=== PATIENT | female | born 1940 | race Caucasian/White ===

== ENCOUNTER 2018-05-31 11:56 | Day surgery (SDC) | payer MEDICARE ==
[2018-05-30 12:05] LABS: BASOPHILS % (AUTO) 0.3 % (0-1); EOSINOPHILS # (AUTO) 0.2 X10'3 (0-0.9); EOSINOPHILS % (AUTO) 2.8 % (0-6); HEMATOCRIT 44.7 % (35.0-45.0); HEMOGLOBIN 15.1 g/dl (12.0-16.0); LYMPHOCYTES # (AUTO) 1.1 X10'3 (1.1-4.8); LYMPHOCYTES % (AUTO) 19.4 % (21-51); MEAN CORPUSCULAR HEMOGLOBIN 30.7 PG (27.0-31.0); MEAN CORPUSCULAR HGB CONC 33.7 % (33.0-36.5); MEAN CORPUSCULAR VOLUME 91.1 FL (78-98); MEAN PLATELET VOLUME 7.9 FL (7.4-10.4); MONOCYTES # (AUTO) 0.5 X10'3 (0-0.9); NEUTROPHILS # (AUTO) 4.1 X10'3 (1.8-7.7); NEUTROPHILS % (AUTO) 69.5 % (42-75); PLATELET COUNT 253 X10'3 (140-440); RED CELL DISTRIBUTION WIDTH 12.8 % (11.5-14.5); WHITE BLOOD COUNT 5.9 X10'3 (4.5-11.0)
[2018-05-30 12:19] LABS: ALBUMIN 3.3 G/DL (3.4-5.0); ANION GAP 7 (8-16); BLOOD UREA NITROGEN 11 MG/DL (7-18); BUN/CREATININE RATIO 15.5 (6.6-38.0); CALCIUM 8.9 MG/DL (8.5-10.1); CHLORIDE 105 MMOL/L (99-107); CREATININE 0.71 MG/DL (0.40-0.90); GLUCOSE 99 MG/DL (70-104); POTASSIUM 4.1 MMOL/L (3.5-5.1); SODIUM 141 MMOL/L (135-145); TOTAL CARBON DIOXIDE 29.3 MMOL/L (24-32); eGFR 80 ML/MIN
[2018-05-30 12:20] LABS: PARTIAL THROMBOPLASTIN TIME 28 SECONDS (22-32); PROTHROMBIN TIME 10.3 SECONDS (9.0-12.0)
[2018-05-31] VITALS (12 sets, daily range): BP systolic 124–149; BP diastolic 52–78
[~2018-05-31] VITALS: Ht 165.1 cm; Wt 92.8 kg
[2018-05-31] MEDS ORDERED: ROSU20TA PO (12:22)
[2018-05-31] MEDS ORDERED: ASPI-10 PO (12:22)
[2018-05-31] MEDS ORDERED: FLEC100T2 PO (12:22)
[2018-05-31] MEDS ORDERED: LEVO125T PO (12:22)
[2018-05-31] MEDS ORDERED: normal saline 1000ml 1,000 ML IV SCH (12:25)
[2018-05-31] MEDS ORDERED: LORazepam 0.5 MG tablet PO PRN (12:25)
[2018-05-31] MEDS ORDERED: diphenhydrAMINE 25mg capsule PO PRN (12:25)
[2018-05-31] MEDS ORDERED: midazolam 2 mg/2 ml injection ONE (13:36)
[2018-05-31] MEDS ORDERED: heparin 1,000unit/ml 10ml vial 10 ML ONE (13:36)
[2018-05-31] MEDS ORDERED: fentaNYL/PF 50MCG/1 ML 2ML syringe ONE (13:36)
[2018-05-31] MEDS ORDERED: nitroGLYCERIN-Tridil 50MG/D5W 250 ML IV ONE (13:36)
[2018-05-31] MEDS ORDERED: LIDOcaine 1% 30ml preserv. free vial ONE (13:37)
[2018-05-31] MEDS ORDERED: iohexol 350MG/ML 100ml bottle IV ONE (13:37)
[2018-05-31] MEDS ORDERED: iohexol 350 MG/ML 50ML vial IV ONE (13:37)
[2018-05-31 14:41] LABS: ISTAT Hct MIX 37 %PCV (35-48); ISTAT O2 SATURATION MIX VENOUS 64 % (60-80); ISTAT SOURCE MIX
[2018-05-31 14:41] LABS: ISTAT HGB ART 12.6 g/dl (12.0-16.0); ISTAT Hct ART 37 %PCV (35-48); ISTAT O2 SATURATION ARTERIAL 86 % (95-98); ISTAT SOURCE ART
== END 2018-05-31 19:10 | disposition home or self-care (01) ==
LOC: SSTAY O 11:56
PROVIDERS: ATTEND Internal Medicine Cardiovascular Disease
DX: I25.10 Atherosclerotic heart disease of native coronary artery without angina pectoris (principal); E78.5 Hyperlipidemia, unspecified; E03.9 Hypothyroidism, unspecified; G47.33 Obstructive sleep apnea (adult) (pediatric); I49.5 Sick sinus syndrome; J44.9 Chronic obstructive pulmonary disease, unspecified; I48.0 Paroxysmal atrial fibrillation; I45.19 Other right bundle-branch block; M19.90 Unspecified osteoarthritis, unspecified site; E11.9 Type 2 diabetes mellitus without complications; Z72.89 Other problems related to lifestyle; Z88.0 Allergy status to penicillin; Z88.2 Allergy status to sulfonamides; Z95.0 Presence of cardiac pacemaker; Z79.82 Long term (current) use of aspirin; Z87.891 Personal history of nicotine dependence; Z98.890 Other specified postprocedural states; Z79.899 Other long term (current) drug therapy
CPT/HCPCS: 36415; 80048; 82803; 85014; 85025; 85610; 85730; 93005; 93460; 99152; 99153; A6257; C1760; C1769; C1894; J1644; J2250; J3010; J3490; J7030; Q0163; Q9967; A4620

== ENCOUNTER 2020-07-14 08:13 | Day surgery (SDC) | payer MEDICARE, BC ==
[2020-07-08 11:47] LABS: CLARITY,URINE CLEAR (Clear); COLOR,URINE YELLOW (Yellow); GLUCOSE, URINE NEGATIVE (Neg); KETONES,URINE NEGATIVE (Neg); LEUKOCYTE ESTERASE ,URINE TRACE (Neg); NITRITES, URINE NEGATIVE (Neg); OCCULT BLOOD,URINE NEGATIVE (Neg); PH,URINE 7.5 (4.8-8.0); PROTEIN,URINE NEGATIVE (Neg); UROBILINOGEN,URINE 0.2 E.U/dL (0.2-1.0)
[2020-07-08 11:48] LABS: BASOPHILS % (AUTO) 0.4 % (0-1); EOSINOPHILS # (AUTO) 0.1 X10'3 (0-0.9); EOSINOPHILS % (AUTO) 2.4 % (0-6); LYMPHOCYTES # (AUTO) 1.2 X10'3 (1.1-4.8); LYMPHOCYTES % (AUTO) 23.2 % (21-51); MEAN CORPUSCULAR HEMOGLOBIN 31.7 PG (27.0-31.0); MEAN CORPUSCULAR HGB CONC 34.3 g/dL (33.0-36.5); MEAN CORPUSCULAR VOLUME 92.5 FL (78-98); MONOCYTES # (AUTO) 0.5 X10'3 (0-0.9); MONOCYTES % (AUTO) 9.6 % (2-12); NEUTROPHILS # (AUTO) 3.3 X10'3 (1.8-7.7); NEUTROPHILS % (AUTO) 64.4 % (42-75); PRE OP HEMATOCRIT 42.3 % (35.0-45.0); PRE OP HEMOGLOBIN 14.5 g/dL (12.0-16.0); PRE OP PLATELET COUNT 242 X10'3 (140-440); RED BLOOD COUNT 4.57 X10'6 (4.20-5.60)
[2020-07-08 11:53] LABS: UA COLLECTION TYPE CLN CATCH MIDSTREAM
[2020-07-08 11:59] LABS: WBC,URINE 0-4 /HPF (0-4)
[2020-07-08 12:00] LABS: BACTERIA,URINE NONE SEEN /HPF (Neg); RBC,URINE 0-2 /HPF (0-2); SQUAMOUS EPITHELIAL CELL,UR FEW /LPF (FEW)
[2020-07-08 12:01] LABS: PRE OP INR 1.1 INR; PRE OP PROTIME 10.9 SECONDS (9.0-12.0)
[2020-07-08 12:24] LABS: ALBUMIN 3.4 G/DL (3.4-5.0); ALBUMIN/GLOBULIN RATIO 0.9 (1.1-1.5); ALKALINE PHOSPHATASE 75 IU/L (46-116); BLOOD UREA NITROGEN 11 MG/DL (7-18); BUN/CREATININE RATIO 15.7 (6.6-38.0); CALCIUM 9.2 MG/DL (8.5-10.1); CHLORIDE 108 MMOL/L (99-107); PRE OP ALT 24 U/L (30-65); PRE OP ANION GAP 8 (8-16); PRE OP AST 15 U/L (10-37); PRE OP BILIRUB, TOTAL 0.7 MG/DL (0.0-1.0); PRE OP GLUCOSE 79 MG/DL (70-104); PRE OP POTASSIUM 4.3 MMOL/L (3.4-5.1); PRE OP SODIUM 146 MMOL/L (135-145); TOTAL CARBON DIOXIDE 29.7 MMOL/L (24-32); TOTAL PROTEIN 7.2 G/DL (6.4-8.2); eGFR 81 ML/MIN
[~2020-07-14] VITALS: Ht 165.1 cm; Wt 93.4 kg
[2020-07-14] VITALS (8 sets, daily range): BP systolic 112–134; BP diastolic 54–72
[~2020-07-14 08:13] MED LIST: ALBU8.5H8 IH; APIX5TAB3 PO; BUDE10.2 INH; BUPIVAcaine/PF 2.5 mg/ml (0.25%) 30ml vial ONE; CALC-1215 PO; DILT30TA34 PO; FLEC100T2 PO; FURO-149 PO; GENTAMICIN IV ONE; LACT1CAP75 PO; LEVO125T PO; MULT-1085 PO; NORMAL SALINE IV ONE; OMEG-15 PO; POTA10TA36 PO; ROSU20TA2 PO; clindamycin-Cleocin 900mg/D5W 50 ML IV ONE; famotidine 20mg tablet PO ONE; ringers solution, lacted 1,000 ML IV SCH
[2020-07-14] MEDS ORDERED: INDOCYANINE GREEN 25 MG/10 ML VIAL IV ONE (09:00)
[2020-07-14] MEDS ORDERED: morphine 4 MG/ML inj SYRINge IV PRN (09:55)
[2020-07-14] MEDS ORDERED: labetalol 20mg/4ml (5mg/ml) syringe IV PRN (09:55)
[2020-07-14] MEDS ORDERED: morphine 2 MG/ML inj. syringe IV PRN (09:55)
[2020-07-14] MEDS ORDERED: dexamethasone sod phosphate 10mg/ml inj ONE (09:55)
[2020-07-14] MEDS ORDERED: neostigmine methylsulfate 1 MG/ML 10ml vial ONE (09:55)
[2020-07-14] MEDS ORDERED: sevoflurane 250ml liquid IH ONE (09:55)
[2020-07-14] MEDS ORDERED: ringers solution, lacted 1,000 ML IV SCH (09:55)
[2020-07-14] MEDS ORDERED: fentaNYL/PF 50MCG/1 ML 2ML syringe IV PRN (09:55)
[2020-07-14] MEDS ORDERED: hydrALAZINE 20mg/ml inj. IV PRN (09:55)
[2020-07-14] MEDS ORDERED: ondansetron/PF 4mg/2ml inj IV PRN (09:55)
[2020-07-14] MEDS ORDERED: rocuronium 10mg/ml inj IV ONE ×2 (09:55→10:10)
[2020-07-14] MEDS ORDERED: propofol inj 20 ML IV ONE (10:09)
[2020-07-14] MEDS ORDERED: LIDOcaine 2% (20mg/ml) 5ml vial ONE (10:10)
[2020-07-14] MEDS ORDERED: glycopyrrolate 0.2mg/ml inj ONE (10:11)
[2020-07-14] MEDS ORDERED: ondansetron/PF 4mg/2ml inj ONE (10:11)
[2020-07-14] MEDS ORDERED: fentaNYL/PF 50MCG/1 ML 2ML syringe ONE ×2 (10:12→11:06)
[2020-07-14] MEDS ORDERED: midazolam 2 mg/2 ml injection ONE (10:12)
--- NOTE | 2020-07-14 12:25 | NUR ---
Received from OR via BED , accompanied by Anesthesiologist DR GOMEZ and report given by Anesthesiolgist. PATIENT WAKING UP, DENIES PAIN, V/S WNL, NEUROVASCULAR CHECKS INTACT, 20G PIV RUE, SCD ON, BANDAIDS TO LAP SIGHTS OF ABDOMEN CDI.
[2020-07-14] MEDS ORDERED: HYDROcodone/acetaminophen 10/325mg tab PO ONE (12:30)
[2020-07-14] MEDS: fentaNYL/PF 50MCG/1 ML 2ML syringe IV PRN ×2 (12:40→12:57)
--- NOTE | 2020-07-14 13:25 | NUR ---
PATIENT A&OX4, DENIES PAIN, V/S WNL, NEUROVASCULAR CHECKS INTACT, 20G PIV RUE D/C, SCD OFF, BANDAIDS TO LAP SIGHTS OF ABDOMEN CDI.. I HAVE REVIEWED D/C INSTRUCTIONS WITH PATIENT AND FAMILY HAVE VERBALIZED UNDERSTANDING.PATIENT WAS D/C HOME WITH ALL BELONGINGS AND FAMILY GAVE TRANSPORT HOME.
== END 2020-07-14 13:25 | disposition home or self-care (01) ==
LOC: PAS 08:13
PROVIDERS: ATTEND Surgery
DX: K80.10 Calculus of gallbladder with chronic cholecystitis without obstruction (principal); K42.9 Umbilical hernia without obstruction or gangrene; J44.9 Chronic obstructive pulmonary disease, unspecified; M19.90 Unspecified osteoarthritis, unspecified site; I10 Essential (primary) hypertension; G47.33 Obstructive sleep apnea (adult) (pediatric); E03.9 Hypothyroidism, unspecified; Z79.899 Other long term (current) drug therapy; Z20.828 Contact with and (suspected) exposure to other viral communicable diseases; Z79.01 Long term (current) use of anticoagulants; Z88.0 Allergy status to penicillin; Z98.41 Cataract extraction status, right eye; Z98.42 Cataract extraction status, left eye; Z95.0 Presence of cardiac pacemaker; Z98.890 Other specified postprocedural states; Z87.891 Personal history of nicotine dependence; Z82.49 Family history of ischemic heart disease and other diseases of the circulatory system
CPT/HCPCS: 36415; 47562; 49585; 80053; 81001; 82948; 84443; 85025; 85610; 85730; 87088; 87635; 93005; J1100; J1580; J2001; J2250; J2405; J2704; J2710; J3010; J3490; J7120; A4215; A4618; A7000

== ENCOUNTER → 2021-10-19 | Day surgery (SDC) | payer MEDICARE, BC ==
[2021-10-14 13:36] LABS: CLARITY,URINE CLEAR (Clear); GLUCOSE, URINE NEGATIVE (Neg); KETONES,URINE NEGATIVE (Neg); LEUKOCYTE ESTERASE ,URINE NEGATIVE (Neg); NITRITES, URINE NEGATIVE (Neg); OCCULT BLOOD,URINE NEGATIVE (Neg); PH,URINE 6.5 (4.8-8.0); PROTEIN,URINE NEGATIVE (Neg); UROBILINOGEN,URINE 0.2 E.U/dL (0.2-1.0)
[2021-10-14 13:43] LABS: COLOR,URINE STRAW (Yellow); UA COLLECTION TYPE CLN CATCH MIDSTREAM
[2021-10-14 13:46] LABS: BASOPHILS % (AUTO) 0.2 % (0-1); EOSINOPHILS % (AUTO) 0.1 % (0-6); LYMPHOCYTES # (AUTO) 0.7 X10'3 (1.1-4.8); LYMPHOCYTES % (AUTO) 15.7 % (21-51); MEAN CORPUSCULAR VOLUME 91.1 FL (78-98); MEAN PLATELET VOLUME 7.4 FL (7.4-10.4); MONOCYTES # (AUTO) 0.8 X10'3 (0-0.9); MONOCYTES % (AUTO) 17.2 % (2-12); NEUTROPHILS % (AUTO) 66.8 % (42-75); PRE OP HEMATOCRIT 44.9 % (35.0-45.0); PRE OP HEMOGLOBIN 15.3 g/dL (12.0-16.0); PRE OP PLATELET COUNT 181 X10'3 (140-440); RED BLOOD COUNT 4.93 X10'6 (4.20-5.60); RED CELL DISTRIBUTION WIDTH 13.4 % (11.5-14.5)
[2021-10-14 13:50] LABS: APTT 35 SECONDS (22-32)
[2021-10-14 13:53] LABS: ALBUMIN 3.2 G/DL (3.4-5.0); ALBUMIN/GLOBULIN RATIO 0.9 (1.1-1.5); ALKALINE PHOSPHATASE 94 IU/L (46-116); BLOOD UREA NITROGEN 7 MG/DL (7-18); BUN/CREATININE RATIO 9.9 (6.6-38.0); CALCIUM 8.3 MG/DL (8.5-10.1); CHLORIDE 101 MMOL/L (99-107); CREATININE 0.71 MG/DL (0.40-0.90); PRE OP ALT 40 U/L (30-65); PRE OP ANION GAP 10 (8-16); PRE OP AST 31 U/L (10-37); PRE OP BILIRUB, TOTAL 0.6 MG/DL (0.0-1.0); PRE OP GLUCOSE 80 MG/DL (70-104); PRE OP POTASSIUM 3.7 MMOL/L (3.4-5.1); PRE OP SODIUM 138 MMOL/L (135-145); TOTAL CARBON DIOXIDE 27.3 MMOL/L (24-32); TOTAL PROTEIN 6.6 G/DL (6.4-8.2); eGFR 79 ML/MIN
[~2021-10-19] VITALS: Ht 165.1 cm; Wt 85.3 kg
[~2021-10-19] MED LIST changes: +ALBU8.5H17 IH; -ALBU8.5H8 IH; +AZEL137S4 BOTHNARES; +BUDE10.7 INH; -BUPIVAcaine/PF 2.5 mg/ml (0.25%) 30ml vial ONE; +CHOL20002 PO; +DILT120C19 PO; -DILT30TA34 PO; +FLUT16SP2 BOTHNARES; -GENTAMICIN IV ONE; -NORMAL SALINE IV ONE; +POTA-205 PO; -POTA10TA36 PO; +ZINC50TA67 PO; +albuterol 2.5 MG/3 ML nebule NEB ONE
--- NOTE | 2021-10-19 06:54 | NUR ---
PTS COVID TEST CAME BACK POSITIVE, PT AND SURGEON INFORMED, PT CANCELED UNTIL A LATER DATE. PT GIVEN A COPY OF HER RESULTS. DRESSED AND DISCHARGED. HER SON WAS COMING TO PICK HER UP.
--- NOTE | 2021-10-19 07:03 | NUR ---
PT. INSTRUCTED TO ISOLATE PER CDC RECOMMENDATIONS, FOLLOW UP WITH PCP REGARDING ELIQUIS AND ANY COVID RELATED S/S. PT. TO CONTACT SURGEON TO RESCHEDULE.
== END | disposition home or self-care (01) ==
LOC: PAS 05:56
PROVIDERS: ATTEND Surgery
DX: K43.2 Incisional hernia without obstruction or gangrene (principal); Z53.8 Procedure and treatment not carried out for other reasons; U07.1 COVID-19; E03.9 Hypothyroidism, unspecified; J44.9 Chronic obstructive pulmonary disease, unspecified; Z20.822 Contact with and (suspected) exposure to COVID-19; Z88.0 Allergy status to penicillin; Z88.2 Allergy status to sulfonamides; Z79.01 Long term (current) use of anticoagulants; Z95.0 Presence of cardiac pacemaker; Z79.899 Other long term (current) drug therapy
CPT/HCPCS: 36415; 71046; 80053; 81003; 85025; 85610; 85730; J7120; U0003; U0005

== ENCOUNTER 2021-10-26 08:20 | Day surgery (SDC) | payer MEDICARE, BC ==
[~2021-10-26] VITALS: Ht 165.1 cm; Wt 84.3 kg
[2021-10-26] VITALS (7 sets, daily range): BP systolic 107–119; BP diastolic 52–68
[~2021-10-26 08:20] MED LIST changes: -albuterol 2.5 MG/3 ML nebule NEB ONE
[2021-10-26] MEDS ORDERED: ceFAZolin 1000mg inj ONE (12:14)
[2021-10-26] MEDS ORDERED: bacitracin 15gm ointment TP ONE (12:14)
[2021-10-26] MEDS ORDERED: BUPIVAcaine/PF 2.5mg/ml (0.25%) 10ml vial ONE (12:15)
[2021-10-26] MEDS ORDERED: labetalol 20mg/4ml (5mg/ml) syringe IV PRN (13:05)
[2021-10-26] MEDS ORDERED: meperidine/PF 25mg/ml syringe IV PRN ×3 (13:05)
[2021-10-26] MEDS ORDERED: hydrALAZINE 20mg/ml inj. IV PRN (13:05)
[2021-10-26] MEDS ORDERED: ondansetron/PF 4mg/2ml inj IV PRN (13:05)
[2021-10-26] MEDS ORDERED: morphine 4 MG/ML inj SYRINge IV PRN (13:05)
[2021-10-26] MEDS ORDERED: proCHLORperazine 10 MG/2 ml inj IV PRN (13:05)
[2021-10-26] MEDS ORDERED: morphine 2 MG/ML inj. syringe IV PRN (13:05)
[2021-10-26] MEDS ORDERED: ringers solution, lacted 1,000 ML IV SCH (13:05)
[2021-10-26] MEDS ORDERED: acetaminophen 1,000mg/100ml IV 100 ML IV PRN (13:05)
[2021-10-26] MEDS ORDERED: fentaNYL/PF 50MCG/1 ML 2ML syringe ONE (13:08)
[2021-10-26] MEDS ORDERED: midazolam 1 mg/ML 2ml injection ONE (13:09)
[2021-10-26] MEDS ORDERED: ondansetron/PF 4mg/2ml inj ONE (13:24)
[2021-10-26] MEDS ORDERED: dexamethasone sod phosphate 4mg/ml inj. ONE (13:24)
[2021-10-26] MEDS ORDERED: LIDOcaine 2% (20mg/ml) 5ml vial ONE (13:24)
[2021-10-26] MEDS ORDERED: propofol inj 20 ML IV ONE (13:24)
--- NOTE | 2021-10-26 13:55 | NUR ---
Received from OR via BED, accompanied by Anesthesiologist and report given by Anesthesiologist. PATIENT WAKING UP, NO S/S OF PAIN, V/S WNL, SCD ON, 20G TO LUE, ABDOMEN LAP SITE CLEAN W/ NO S/S OF COMPLICATIONS
[2021-10-26] MEDS ORDERED: oxyCODONE/APAP 5-325mg tablet PO ONE (14:10)
--- NOTE | 2021-10-26 14:45 | NUR ---
PATIENT A&OX4, DENIES PAIN, V/S WNL, SCD ON, 20G TO LUE D/C, ABDOMEN LAP SITE CLEAN W/ NO S/S OF COMPLICATIONS .. I HAVE REVIEWED D/C INSTRUCTIONS WITH PATIENT and they have verbalized understanding patient d/c home with all belongings and family gave transport home.
== END 2021-10-26 14:45 | disposition home or self-care (01) ==
LOC: PAS 08:20
PROVIDERS: ATTEND Surgery
DX: K43.9 Ventral hernia without obstruction or gangrene (principal); G47.33 Obstructive sleep apnea (adult) (pediatric); J44.9 Chronic obstructive pulmonary disease, unspecified; E03.9 Hypothyroidism, unspecified; I48.91 Unspecified atrial fibrillation; Z88.0 Allergy status to penicillin; Z88.2 Allergy status to sulfonamides; Z79.01 Long term (current) use of anticoagulants; Z79.899 Other long term (current) drug therapy; Z87.891 Personal history of nicotine dependence; Z98.41 Cataract extraction status, right eye; Z98.42 Cataract extraction status, left eye; Z98.890 Other specified postprocedural states; Z95.0 Presence of cardiac pacemaker
CPT/HCPCS: 49560; 82948; 93005; J0690; J1100; J2250; J2405; J2704; J3010; J3490; J7030; J7120; Z7506; Z7512; A4215; A4618; A7000

== ENCOUNTER 2022-02-01 05:13 | Day surgery (SDC) | payer MEDICARE, BC ==
[2022-01-25 14:56] LABS: BASOPHILS % (AUTO) 0.2 % (0-1); EOSINOPHILS # (AUTO) 0.1 X10'3 (0-0.9); EOSINOPHILS % (AUTO) 0.7 % (0-6); LYMPHOCYTES # (AUTO) 1.3 X10'3 (1.1-4.8); LYMPHOCYTES % (AUTO) 17.4 % (21-51); MEAN CORPUSCULAR HEMOGLOBIN 30.2 PG (27.0-31.0); MEAN CORPUSCULAR HGB CONC 33.6 g/dL (33.0-36.5); MEAN PLATELET VOLUME 7.4 FL (7.4-10.4); MONOCYTES # (AUTO) 0.5 X10'3 (0-0.9); MONOCYTES % (AUTO) 7.3 % (2-12); NEUTROPHILS # (AUTO) 5.6 X10'3 (1.8-7.7); NEUTROPHILS % (AUTO) 74.4 % (42-75); PRE OP HEMATOCRIT 45.4 % (35.0-45.0); PRE OP HEMOGLOBIN 15.2 g/dL (12.0-16.0); PRE OP PLATELET COUNT 289 X10'3 (140-440); RED BLOOD COUNT 5.04 X10'6 (4.20-5.60); RED CELL DISTRIBUTION WIDTH 13.8 % (11.5-14.5)
[2022-01-25 15:03] LABS: CLARITY,URINE CLEAR (Clear); COLOR,URINE YELLOW (Yellow); GLUCOSE, URINE NEGATIVE (Neg); KETONES,URINE NEGATIVE (Neg); LEUKOCYTE ESTERASE ,URINE NEGATIVE (Neg); NITRITES, URINE NEGATIVE (Neg); OCCULT BLOOD,URINE NEGATIVE (Neg); PROTEIN,URINE NEGATIVE (Neg); UROBILINOGEN,URINE 0.2 E.U/dL (0.2-1.0)
[2022-01-25 15:04] LABS: UA COLLECTION TYPE NON-SPECIFIED
[2022-01-25 15:13] LABS: ALBUMIN 3.6 G/DL (3.4-5.0); ALBUMIN/GLOBULIN RATIO 0.9 (1.1-1.5); ALKALINE PHOSPHATASE 92 IU/L (46-116); BLOOD UREA NITROGEN 11 MG/DL (7-18); BUN/CREATININE RATIO 15.5 (6.6-38.0); CALCIUM 9.4 MG/DL (8.5-10.1); CHLORIDE 105 MMOL/L (99-107); CREATININE 0.71 MG/DL (0.40-0.90); PRE OP ALT 32 U/L (30-65); PRE OP ANION GAP 5 (8-16); PRE OP AST 22 U/L (10-37); PRE OP BILIRUB, TOTAL 0.7 MG/DL (0.0-1.0); PRE OP GLUCOSE 90 MG/DL (70-104); PRE OP POTASSIUM 3.4 MMOL/L (3.4-5.1); PRE OP SODIUM 139 MMOL/L (135-145); TOTAL PROTEIN 7.6 G/DL (6.4-8.2); eGFR 79 ML/MIN
[2022-02-01] VITALS (9 sets, daily range): BP systolic 108–152; BP diastolic 62–72
[~2022-02-01] VITALS: Ht 165.1 cm; Wt 84.0 kg
[~2022-02-01 05:13] MED LIST changes: -BUDE10.2 INH; +LEVO100T PO; -LEVO125T PO; -clindamycin-Cleocin 900mg/D5W 50 ML IV ONE; -famotidine 20mg tablet PO ONE
[2022-02-01] MEDS ORDERED: clindamycin-Cleocin 900mg/D5W 50 ML IV ONE (05:30)
[2022-02-01] MEDS ORDERED: famotidine 20mg tablet PO ONE (05:30)
[2022-02-01] MEDS ORDERED: BUPIVAcaine 0.5% inj/PF 30 ML ONE ×2 (06:41→08:27)
[2022-02-01] MEDS ORDERED: glycopyrrolate 0.2mg/ml inj ONE (07:10)
[2022-02-01] MEDS ORDERED: sevoflurane 250ml liquid IH ONE (07:10)
[2022-02-01] MEDS ORDERED: ondansetron/PF 4mg/2ml inj IV PRN (07:15)
[2022-02-01] MEDS ORDERED: morphine 4 MG/ML inj SYRINge IV PRN (07:15)
[2022-02-01] MEDS ORDERED: labetalol 20mg/4ml (5mg/ml) syringe IV PRN (07:15)
[2022-02-01] MEDS ORDERED: ringers solution, lacted 1,000 ML IV SCH (07:15)
[2022-02-01] MEDS ORDERED: fentaNYL/PF 50MCG/1 ML 2ML syringe IV PRN ×2 (07:15)
[2022-02-01] MEDS ORDERED: hydrALAZINE 20mg/ml inj. IV PRN (07:15)
[2022-02-01] MEDS ORDERED: morphine 2 MG/ML inj. syringe IV PRN (07:15)
[2022-02-01] MEDS ORDERED: fentaNYL/PF 50MCG/1 ML 2ML syringe ONE (07:20)
[2022-02-01] MEDS ORDERED: midazolam 1 mg/ML 2ml injection ONE (07:20)
[2022-02-01] MEDS ORDERED: dexamethasone sod phosphate 4mg/ml inj. ONE (07:28)
[2022-02-01] MEDS ORDERED: propofol inj 20 ML IV ONE (07:28)
[2022-02-01] MEDS ORDERED: LIDOcaine 2% (20mg/ml) 5ml vial ONE (07:28)
[2022-02-01] MEDS ORDERED: neostigmine methylsulfate 1 MG/ML 10ml vial ONE (07:28)
[2022-02-01] MEDS ORDERED: ondansetron/PF 4mg/2ml inj ONE (07:28)
[2022-02-01] MEDS ORDERED: rocuronium 10mg/ml inj IV ONE (07:28)
[2022-02-01] MEDS ORDERED: BUPIVAcaine 0.5% inj/PF 30 ml vial IJ ONE (07:59)
[2022-02-01] MEDS ORDERED: BUPIVACAINE liposomal/PF 13.3 MG/ML vial IM ONE (08:27)
--- NOTE | 2022-02-01 08:59 | NUR ---
Received from OR via STRETCHER, accompanied by Anesthesiologist ARIANA and report given by Anesthesiolgist. PT IS ALERT AND ORIENTED, TALKING, DENIES PAIN AT THIS TIME, STATES MILE LOWER ABDOMINAL DISCOMFORT INCISIONS CHECKED, CLOSED WITH DERMABOND, NO SIGNS OF BLEEDING SEEN
--- NOTE | 2022-02-01 10:09 | NUR ---
PT DISCHARGED IN STABLE CONDITION VITAL SIGNS STABLE, PTS DAUGHTER IN LAW PICKED UP PT. PT TAKEN TO CAR VIA WHEELCHAIR, PT STATES PAIN DECREASED TO A ONE AFTER SHE GOT UP TO WENT TO THE BATHROOM. IV D/SHANEL CATHETER INTACT. SMALL PRESSURE DRESSING APPLIED, NO BLEEDING. DISCHARGE INSTRUCTIONS GIVEN TO PATIENT AND DAUGHTER INLAW. BOTH VERBALIZED UNDERSTANDING, INSTRUCTIONS GIVEN TO EQUIPMENT ENGINEERING TECHNICIAN PA[facility] AT [facility] [address].
== END 2022-02-01 10:09 | disposition home or self-care (01) ==
LOC: PAS 05:13
PROVIDERS: ATTEND Surgery
DX: K43.2 Incisional hernia without obstruction or gangrene (principal); J44.9 Chronic obstructive pulmonary disease, unspecified; I48.91 Unspecified atrial fibrillation; G47.30 Sleep apnea, unspecified; M19.90 Unspecified osteoarthritis, unspecified site; Z20.822 Contact with and (suspected) exposure to COVID-19; Z79.899 Other long term (current) drug therapy; Z79.01 Long term (current) use of anticoagulants; Z90.49 Acquired absence of other specified parts of digestive tract; Z88.0 Allergy status to penicillin; Z88.2 Allergy status to sulfonamides; Z95.0 Presence of cardiac pacemaker; Z98.41 Cataract extraction status, right eye; Z98.42 Cataract extraction status, left eye; Z98.890 Other specified postprocedural states; Z87.891 Personal history of nicotine dependence; Z72.89 Other problems related to lifestyle
CPT/HCPCS: 36415; 49654; 64488; 80053; 81003; 82948; 85025; C1781; C9290; J1100; J2250; J2405; J2704; J2710; J3010; J3490; J7030; J7120; S0020; U0003; U0005; Z7506; Z7508; Z7512; A4618; A7000

== ENCOUNTER 2022-09-29 12:22 | Outpatient (CLI) | payer MEDICARE, BC ==
[~2022-09-29 12:22] MED LIST changes: -ROSU20TA2 PO; -ringers solution, lacted 1,000 ML IV SCH
== END 2022-09-29 23:59 | disposition home or self-care (01) ==
LOC: RAD 12:22
PROVIDERS: ATTEND Internal Medicine Cardiovascular Disease
DX: I08.1 Rheumatic disorders of both mitral and tricuspid valves (principal); Z95.0 Presence of cardiac pacemaker
CPT/HCPCS: 93306

== ENCOUNTER 2023-05-29 06:05 | Day surgery (SDC) | payer MEDICARE, BC ==
[2023-05-28 11:06] LABS: BASOPHILS % (AUTO) 0.3 % (0-1); EOSINOPHILS # (AUTO) 0.1 X10'3 (0-0.9); EOSINOPHILS % (AUTO) 1.5 % (0-6); HEMATOCRIT 44.5 % (35.0-45.0); HEMOGLOBIN 14.6 g/dl (12.0-16.0); LYMPHOCYTES # (AUTO) 0.9 X10'3 (1.1-4.8); LYMPHOCYTES % (AUTO) 16.2 % (21-51); MEAN CORPUSCULAR HGB CONC 32.8 g/dL (33.0-36.5); MEAN CORPUSCULAR VOLUME 91.3 FL (78-98); MEAN PLATELET VOLUME 7.6 FL (7.4-10.4); MONOCYTES # (AUTO) 0.5 X10'3 (0-0.9); MONOCYTES % (AUTO) 9.3 % (2-12); NEUTROPHILS # (AUTO) 4.1 X10'3 (1.8-7.7); NEUTROPHILS % (AUTO) 72.7 % (42-75); PLATELET COUNT 237 X10'3 (140-440); RED BLOOD COUNT 4.87 X10'6 (4.20-5.60); RED CELL DISTRIBUTION WIDTH 13.6 % (11.5-14.5); WHITE BLOOD COUNT 5.6 X10'3 (4.5-11.0)
[2023-05-28 11:15] LABS: ALBUMIN 3.3 G/DL (3.4-5.0); ANION GAP 7 (8-16); BLOOD UREA NITROGEN 10 MG/DL (7-18); BUN/CREATININE RATIO 13.9 (10.0-20.0); CALCIUM 9.4 MG/DL (8.5-10.1); CHLORIDE 104 MMOL/L (99-107); CREATININE 0.72 MG/DL (0.40-0.90); GLUCOSE 89 MG/DL (70-104); POTASSIUM 4.1 MMOL/L (3.5-5.1); SODIUM 139 MMOL/L (135-145); TOTAL CARBON DIOXIDE 27.9 MMOL/L (24-32); eGFR 78 ML/MIN
[2023-05-28 11:16] LABS: APTT 30 SECONDS (22-32); PROTHROMBIN TIME 10.9 SECONDS (9.0-12.0)
[~2023-05-29] VITALS: Ht 165.1 cm; Wt 86.4 kg
[2023-05-29] VITALS (11 sets, daily range): BP systolic 96–122; BP diastolic 42–59; PULSE 60–69; RESP 14–16; TEMP 98.1; O2SAT 94–98
[2023-05-29] MEDS ORDERED: clindamycin-Cleocin 900mg/D5W 50 ML IV ONE (06:25)
[2023-05-29] MEDS ORDERED: normal saline 1000ml 1,000 ML IV SCH (06:30)
[2023-05-29] MEDS ORDERED: ROSU20TA73 PO (06:32)
[2023-05-29] MEDS ORDERED: LIDOcaine 1% w/EPI 1:100,000 inj. MDV 50 ML VIAL ONE (07:34)
[2023-05-29] MEDS ORDERED: vancomycin 1,000mg inj ONE (07:35)
[2023-05-29] MEDS ORDERED: midazolam 1 mg/ML 2ml injection ONE (07:35)
[2023-05-29] MEDS ORDERED: fentaNYL/PF 50MCG/1 ML 2ML syringe ONE (07:35)
[2023-05-29] MEDS ORDERED: HYDROcodone/acetaminophen 10/325mg tab PO PRN (09:40)
[2023-05-29] MEDS ORDERED: HYDROcodone/acetaminophen 5mg/325mg tablet PO PRN (09:40)
== END 2023-05-29 14:00 | disposition home or self-care (01) ==
LOC: SSTAY O 06:05
PROVIDERS: ATTEND Internal Medicine Cardiovascular Disease
DX: Z45.010 Encounter for checking and testing of cardiac pacemaker pulse generator [battery] (principal); I25.10 Atherosclerotic heart disease of native coronary artery without angina pectoris; I48.0 Paroxysmal atrial fibrillation; I10 Essential (primary) hypertension; E78.5 Hyperlipidemia, unspecified; E03.9 Hypothyroidism, unspecified; Z87.891 Personal history of nicotine dependence; Z88.0 Allergy status to penicillin; Z88.2 Allergy status to sulfonamides; Z79.899 Other long term (current) drug therapy
CPT/HCPCS: 33228; 36415; 80048; 85025; 85610; 85730; 93005; 99152; 99153; C1785; J2250; J3010; J3370; J3490; J7030; A6449

== ENCOUNTER 2024-06-10 07:07 | Day surgery (SDC) | payer MEDICARE, BC ==
[2024-06-09 11:21] LABS: BASOPHILS % (AUTO) 0.4 % (0-1); EOSINOPHILS # (AUTO) 0.1 X10'3 (0-0.9); EOSINOPHILS % (AUTO) 1.1 % (0-6); HEMATOCRIT 44.2 % (35.0-45.0); HEMOGLOBIN 14.7 g/dl (12.0-16.0); LYMPHOCYTES % (AUTO) 17.7 % (21-51); MEAN CORPUSCULAR HEMOGLOBIN 31.3 PG (27.0-31.0); MEAN CORPUSCULAR HGB CONC 33.3 g/dL (33.0-36.5); MEAN CORPUSCULAR VOLUME 93.9 FL (78-98); MEAN PLATELET VOLUME 7.7 FL (7.4-10.4); MONOCYTES # (AUTO) 0.6 X10'3 (0-0.9); MONOCYTES % (AUTO) 9.9 % (2-12); NEUTROPHILS # (AUTO) 4.1 X10'3 (1.8-7.7); NEUTROPHILS % (AUTO) 70.9 % (42-75); PLATELET COUNT 244 X10'3 (140-440); RED CELL DISTRIBUTION WIDTH 13.6 % (11.5-14.5); WHITE BLOOD COUNT 5.8 X10'3 (4.5-11.0)
[2024-06-09 11:35] LABS: ALBUMIN 3.4 G/DL (3.4-5.0); ANION GAP 7 (8-16); BLOOD UREA NITROGEN 11 MG/DL (7-18); BUN/CREATININE RATIO 16.2 (10.0-20.0); CALCIUM 9.2 MG/DL (8.5-10.1); CHLORIDE 106 MMOL/L (99-107); CREATININE 0.68 MG/DL (0.40-0.90); GLUCOSE 92 MG/DL (70-104); POTASSIUM 4.2 MMOL/L (3.5-5.1); SODIUM 142 MMOL/L (135-145); TOTAL CARBON DIOXIDE 29.2 MMOL/L (24-32); eGFR 83 ML/MIN
[2024-06-09 11:39] LABS: INR 1.1 INR; PROTHROMBIN TIME 11.4 SECONDS (9.0-12.0)
[~2024-06-10] VITALS: Ht 165.1 cm; Wt 87.0 kg
[2024-06-10] VITALS (11 sets, daily range): BP systolic 107–146; BP diastolic 60–78; PULSE 65–92; RESP 13–17; O2SAT 94–98
[~2024-06-10 07:07] MED LIST changes: -AZEL137S4 BOTHNARES; -FLUT16SP2 BOTHNARES; -FURO-149 PO; -POTA-205 PO; +ROSU20TA73 PO
[2024-06-10] MEDS ORDERED: FLEC50TA28 PO (07:33)
[2024-06-10] MEDS ORDERED: FURO-150 PO (07:35)
[2024-06-10] MEDS ORDERED: potassium PO (07:35)
[2024-06-10] MEDS ORDERED: DILT120T3 PO (07:36)
[2024-06-10] MEDS: morphine 10mg/ml inj. IV ONE (09:57)
[2024-06-10] MEDS: MIDAZolam 1mg/ml 10ml vial IV ONE (09:57)
[2024-06-10] MEDS: normal saline 1000ml 1,000 ML IV SCH (09:57)
[2024-06-10] MEDS: nitroGLYCERIN 0.4mg SUBLingual tab SL PRN (14:21)
[2024-06-10] MEDS: atropine 0.1mg/ml 10ml syringe IV ONE (14:22)
[2024-06-10] MEDS: diphenhydrAMINE 25mg capsule PO ONE (14:22)
[2024-06-10] MEDS: amiodarone 150mg/dext, iso-os 100 ML IV ONE (14:22)
[2024-06-10] MEDS: LORazepam 0.5 MG tablet PO ONE (14:22)
== END 2024-06-10 11:40 | disposition home or self-care (01) ==
LOC: SSTAY O 07:07
PROVIDERS: ATTEND Internal Medicine Cardiovascular Disease
DX: I48.0 Paroxysmal atrial fibrillation (principal); I25.10 Atherosclerotic heart disease of native coronary artery without angina pectoris; E78.5 Hyperlipidemia, unspecified; E03.9 Hypothyroidism, unspecified; J44.9 Chronic obstructive pulmonary disease, unspecified; G47.33 Obstructive sleep apnea (adult) (pediatric); Z79.01 Long term (current) use of anticoagulants; Z79.899 Other long term (current) drug therapy; Z90.722 Acquired absence of ovaries, bilateral; Z95.0 Presence of cardiac pacemaker; Z98.41 Cataract extraction status, right eye; Z98.42 Cataract extraction status, left eye; Z98.890 Other specified postprocedural states; Z88.0 Allergy status to penicillin; Z88.2 Allergy status to sulfonamides; Z80.9 Family history of malignant neoplasm, unspecified; Z80.0 Family history of malignant neoplasm of digestive organs
CPT/HCPCS: 36415; 80048; 85025; 85610; 92960; 93005; J2250; J2270; J7030; J2274

== ENCOUNTER 2025-06-10 07:03 | Day surgery (SDC) | payer MEDICARE, BC ==
[2025-06-09 11:16] LABS: MEAN PLATELET VOLUME 7.6 FL (7.4-10.4); RED CELL DISTRIBUTION WIDTH 13.6 % (11.5-14.5)
[2025-06-09 11:23] LABS: CREATININE 0.72 MG/DL (0.40-0.90); TOTAL CARBON DIOXIDE 28.4 MMOL/L (24-32); eGFR 77 ML/MIN
[2025-06-09 11:24] LABS: INR 1.1 INR
[2025-06-10] VITALS (7 sets, daily range): BP systolic 105–133; BP diastolic 56–66; PULSE 80–84; RESP 16; TEMP 97.9; O2SAT 90–99
[~2025-06-10] VITALS: Ht 165.1 cm; Wt 88.7 kg
[~2025-06-10 07:03] MED LIST changes: -BUDE10.7 INH; -CALC-1215 PO; -CHOL20002 PO; -DILT120C19 PO; +DILT120T3 PO; -FLEC100T2 PO; +FLEC50TA28 PO; +FURO-150 PO; -LACT1CAP75 PO; -MULT-1085 PO; -ROSU20TA73 PO; +ROSU20TA98 PO; +potassium PO
--- NOTE | 2025-06-10 07:24 | ELECTROCARDIOGRAPH REPORT ---
[facility] Test Date: 2025-06-10 Test Time: 07:21:37 Pat Name: NEEL COLLADO Department: [facility] Patient ID: [facility]-[id number] Room: Gender: F Occupational Therapy Supervisor: HERMELINDO : 1940 Requested By: VLADIMIR CEJA Order Number: [id number] Reading MD: Dr. LEANNE Ceja Measurements Intervals [place]thon Rate: 77 P: 0 IL: 53 QRS: -81 QRSD: 203 T: 119 QT: 449 QTc: 509 Interpretive Statements V-paced rhythm with some inhibition, underlying AF No further analysis attempted due to paced rhythm Electronically Signed On 06-10-2025 14:44:[address] LEANNE Ceja Please click the below link to view image of tracing.
[2025-06-10] MEDS ORDERED: atropine 0.1mg/ml 10ml syringe IV ONE (07:30)
[2025-06-10] MEDS ORDERED: morphine 10mg/ml inj. IV ONE (07:30)
[2025-06-10] MEDS ORDERED: normal saline 1000ml 1,000 ML IV SCH (07:30)
[2025-06-10] MEDS ORDERED: MIDAZolam 1mg/ml 10ml vial IV ONE (07:30)
[2025-06-10] MEDS ORDERED: amiodarone 150mg/dext, iso-os 100 ML IV ONE (07:30)
[2025-06-10] MEDS ORDERED: FLEC50TA PO (07:41)
[2025-06-10] MEDS ORDERED: FLUT1BLS4 INH (07:41)
[2025-06-10] MEDS ORDERED: LEVO125T PO (07:41)
[2025-06-10] MEDS ORDERED: OMEG100037 PO (07:41)
[2025-06-10] MEDS ORDERED: midazolam 1 mg/ML 2ml injection ONE ×2 (07:48→08:29)
[2025-06-10] MEDS ORDERED: amiodarone 50MG/ML inj IV ONE (07:48)
[2025-06-10] MEDS ORDERED: atropine 0.1mg/ml 10ml syringe ONE (07:49)
[2025-06-10] MEDS ORDERED: fentaNYL/PF 50MCG/1 ML 2ML syringe ONE ×2 (07:49→08:31)
--- NOTE | 2025-06-10 09:13 | ELECTROCARDIOGRAPH REPORT ---
[facility] Test Date: 2025-06-10 Test Time: 09:10:59 Pat Name: NEEL COLLADO Department: [facility] Patient ID: [id number] Room: Gender: F Kitchen Food Server: : 1940 Requested By: VLADIMIR CEJA Order Number: [id number] Reading MD: Dr. LEANNE Ceja Measurements Intervals [place] Rate: 80 P: 188 MS: 68 QRS: -75 QRSD: 195 T: 111 QT: 474 QTc: 547 Interpretive Statements A-V dual-paced rhythm with some inhibition No further analysis attempted due to paced rhythm Electronically Signed On 06-10-2025 14:44:[address] LEANNE Ceja Please click the below link to view image of tracing.
--- NOTE | 2025-06-10 09:32 | CARDIOLOGY REPORT ---
DATE OF SERVICE: 06/10/2025 DICTATING PHYSICIAN: LEANNE Ely MD [employer] PRIMARY PHYSICIAN: Nino Altamirano MD GLASS GLAZIER: LEANNE Ely MD INDICATION: The patient is an 85-year-old postmenopausal female with hypertension, hyperlipidemia, COPD, sick sinus syndrome, and status post dual- chamber pacemaker implantation and also has a history of CAD. The patient had a pacemaker implanted for sick sinus rhythm back in 06/2013. She was started on Eliquis 5 mg p.o. b.i.d. because of the AFib noted on the pacemaker interrogation. The patient was noted to be in AFib in 02/2024, underwent cardioversion in 05/2024, and AFib recurred in 04/2025, and the flecainide increased to 150 mg p.o. q.a.m. and 100 mg p.o. q.p.m., and now she is being scheduled for a regular electrical cardioversion. Risks, benefits, and alternative options discussed. The patient does have a history of sleep apnea, on CPAP since 2015 and BiPAP since 2020. DESCRIPTION OF PROCEDURE: Anterior and posterior patch was used. Using biphasic electrical energy 150 joules x 1 converted to AV paced rhythm. The patient had atrial flutter. Pacing rate is read at 80, could be lower to 60 or 70 when she comes for followup. IMPRESSION: An 85-year-old postmenopausal female with persistent atrial flutter, successfully electrically converted to AV paced rhythm. RECOMMENDATIONS: Continue apixaban 5 mg p.o. b.i.d., Coreg, Cardizem CD 120 mg p.o. b.i.d., Flecainide 150 mg p.o. q.a.m. and 100 mg p.o. q.a.m. Recommend diet, weight loss, exercise program, and adequate treatment of sleep apnea. LEANNE Ely MD TID: [id number] RECEIPT: [id number] /[facility] cc: Nino Altamirano MD [facility] [place] [facility]
== END 2025-06-10 10:15 | disposition home or self-care (01) ==
LOC: SSTAY O 07:03
PROVIDERS: ATTEND Internal Medicine Cardiovascular Disease
DX: I48.92 Unspecified atrial flutter (principal); I48.91 Unspecified atrial fibrillation; I25.10 Atherosclerotic heart disease of native coronary artery without angina pectoris; I49.5 Sick sinus syndrome; G47.30 Sleep apnea, unspecified; E78.5 Hyperlipidemia, unspecified; I10 Essential (primary) hypertension; J44.9 Chronic obstructive pulmonary disease, unspecified; Z79.01 Long term (current) use of anticoagulants; Z45.018 Encounter for adjustment and management of other part of cardiac pacemaker
CPT/HCPCS: 36415; 80048; 85025; 85610; 92960; 93005; J2250; J3010; J7030; Z7610; 99152; J0282; J0461